=== PATIENT | male | born 1960 | race Caucasian/White ===

== ENCOUNTER → 2016-06-21 | Day surgery (SDC) | payer OTHER | END | disposition home or self-care (01) | LOC: SDCH 07:28 | DX: K44.9 Diaphragmatic hernia without obstruction or gangrene (principal); K64.8 Other hemorrhoids; E11.9 Type 2 diabetes mellitus without complications; I10 Essential (primary) hypertension; M19.90 Unspecified osteoarthritis, unspecified site | CPT/HCPCS: J2704 ==